=== PATIENT | female | born 1990 ===

== ENCOUNTER 2019-12-25 05:36 | Inpatient (IN) ==
--- NOTE | 2019-12-22 11:48 | History & Physical Report ---
Date of Service December 22, 2019 Assessment & Plan (1) Previous delivery affecting , antepartum: Repeat section. The patient was counseled to the nature of the procedure including alternatives such as labor. Risks were discussed including bleeding infection injury to bowel bladder ureter vessels and even baby. The risks of internal organ injury were discussed as being higher with prior sections. Deep Vein Thrombosis, pulmonary embolus and breakdown of the incision discussed. Deep vein thrombosis pulmonary embolus hernia and failure of the incision to heal were discussed Patient verbalized understanding of this and was given ample time to ask que hilary History of Present Illness Primary Care Provider: NO PCP 2 prior C/S and scheduled for repeat. Declines tubal Allergies Allergy/AdvReac Type Severity Reaction Status Date / Time No Known Allergies Allergy Verified 12/22/19 11:02 Home Medications Home Medications Medication Instructions Recorded Confirmed Type 1 dose PO DAILY 12/22/19 12/22/19 History Patient History Social History (Updated 06/21/19 @ 14:56 by Cortney Prakash) Preferred Language: Occitan Communication Ability: Effective Inventory Associate Required: No Beliefs That Will Affect Care: None Current Living Situation: Spouse Feels Safe at Home: Yes Smoking Status: Former smoker Second Hand Exposure: Yes (as a child) ; Hx Alcohol Use: Yes Hx Substance Use: No Physical Exam Constitutional: WD/WN, vitals as above well developed and well nourished Respiratory: normal respiratory effort, lungs clear to auscultation normal respiratory effort Cardiovascular: RRR, no murmur, no edema Chest (Breasts): normal inspection/palpation of breasts Breast: normal inspection of breasts, normal inspection of axillae, normal palpation of breasts and normal palpation of axillae Gastrointestinal (Abdomen): normal bowel sounds, soft, nontender, no hepatosplenomegaly Genitourinary: no vaginal lesions, no adnexal mass normal external appearance Coding Level of Care Code None Diagnoses Previous delivery affecting , antepartum O34.219
[2019-12-25] MEDS ORDERED: CITRIC ACID/SODIUM CITRATE 15 ML UDC PO SCH (06:00)
[2019-12-25] MEDS ORDERED: CEFAZOLIN 2,000 MG in SYRINGE 0 ML IV SCH (06:00)
[2019-12-25] MEDS ORDERED: LACTATED RINGER'S 1,000 ML IV SCH ×2 (06:00→10:58)
[2019-12-25 06:08] LABS: Basophils # (auto) 0.02 K/uL (0-0.2); Basophils % (auto) 0.1 %; Eosinophils # (auto) 0.05 K/uL (0-0.5); Eosinophils % (auto) 0.3 %; Hematocrit (blood only) 35.7 % (37-47); Hemoglobin 11.6 g/dL (12.0-16.0); Immature Granulocytes # (auto) 0.14 K/uL (0.00-0.02); Immature Granulocytes % (auto) 0.8 %; Lymphocytes # (auto) 2.76 K/uL (1.2-3.4); Mean Corpuscular Hemoglobin 27.6 pg (25-34); Mean Corpuscular Volume 84.8 fL (80-100); Mean Platelet Volume 10.6 fL (7.4-10.4); Monocytes # (auto) 1.52 K/uL (0.11-0.59); Monocytes % (auto) 8.8 %; Neutrophils # (auto) 12.73 K/uL (1.4-6.5); Platelet Count 213 K/uL (130-400); RDW Coefficient of Variation 13.5 % (11.5-14.5); RDW Standard Deviation 41.1 fL (36.4-46.3); Red Blood Count 4.21 M/uL (4.2-5.4); White Blood Count 17.22 K/uL (4.8-10.8)
[2019-12-25 06:13] LABS: Mean Corpuscular Hgb Conc 32.5 g/dL (32-36)
--- NOTE | 2019-12-25 07:31 | Anesthesiology Consultation ---
Date of Service December 25, 2019 @ 39wk 2x Previous C Section Smoker Assessment & Plan (1) Encounter for pre-operative examination: Chart Review Chart Review: Acceptable Risk for Surgery and Patient NOT seen in Pre Admission Testing Consults Requested none ASA ASA2 Proposed Anesthesia Anesthesia Type: Spinal Risk / Benefits Reviewed With: PT / POA / Parent / Guardian, Accepts Plan and Informed Consent Obtained History Surgery Operation Date: 12/25/19 07:30 Proposed Procedures p Section - Ginny Wheeler MD, FACOG Height/Weight Height: 5 ft 3 in Weight: 76.204 kg Allergies Allergy/AdvReac Type Severity Reaction Status Date / Time No Known Allergies Allergy Verified 12/22/19 11:02 Medications Home Medications Medication Instructions Recorded Confirmed Last Taken 1 dose PO DAILY 12/22/19 12/25/19 12/22/19 21:00 NPO Date Last Intake of Fluids: 12/24/19 Time Last Intake of Fluids: 23:45 Date Last Intake of Solids: 12/24/19 Time Last Intake of Solids: 23:45 Past Medical History Medical History No known health problems Exercise / Class Metabolic Activity II 4-5 Yardwork/Stairs/Walk up hill Past Family History Family History Mother Premature labor Hypertension Other No family history of adverse response to anesthesia Past Surgical History Surgical History History of delivery (Inactive) x 2 Past Anesthesia History No Hx of Anesthesia Complications and No Family Hx of Anesthesia Complications History of PONV No Hx of PONV and No Hx of Motion Sickness Social History Smoking Status: Current every day smoker tobacco type: cigarettes Do You Dip or Chew Tobacco: No Smoking End Date: 9 months ago Hx Alcohol Use: Yes alcohol intake frequency: holidays/special occasions only Hx Substance Use: No substance use type: does not use Physical Exam Vital Signs Last Vital Signs Temp 36.4 C L 12/25/19 05:57 Pulse 88 12/25/19 05:57 Resp 20 12/25/19 05:57 BP 142/92 H 12/25/19 05:57 ENMT Mouth: no dentition abnormality Thyromental Distance: > or= 3.5 Finger Breadths Mallampati Class: II Neck normal visual inspection Respiratory normal respiratory effort Auscultation: lungs clear to auscultation bilaterally Cardiovascular Rate/Rhythm: regular rate and regular rhythm Psychiatric Orientation: alert Testing Laboratory Results 12/25/19 05:56
[2019-12-25] MEDS ORDERED: MoRPHine SULFATE PF 1 MG/ML 10 ML AMP/VIAL ONE (07:33)
[2019-12-25] MEDS ORDERED: fentaNYL citrate 100 MCG/2 ML VIAL ONE (07:33)
--- NOTE | 2019-12-25 07:33 | History & Physical Bridge Note ---
Date of Service December 25, 2019 History & Physical Bridge Note I have examined the patient, reviewed the History & Physical and in the interval since the performance of the History & Physical I have noted the following changes of clinical significance: no changes noted
[2019-12-25] MEDS ORDERED: OXYTOCIN 10 UNITS/ML VIAL ONE (07:59)
[2019-12-25] MEDS ORDERED: ONDANSETRON INJ 2 MG/ML 2 ML VIAL ONE (07:59)
[2019-12-25 08:26] LABS: Base Excess Cord Arterial Bld 0.4 mEq/L (-9-1.8); CO2 Cord Arterial Blood 62 mmHg (39.1-73.5); HCO3 Cord Arterial Blood 29 mmol/L (19.7-28.5); PO2 Cord Arterial Blood 17 mmHg (4.1-31.7)
[2019-12-25 08:31] LABS: Oxygen Sat Cord Arterial Blood < 60.0 % (<60)
[2019-12-25 08:32] LABS: pH Cord Arterial Blood 7.29 (7.1-7.38)
[2019-12-25 08:33] LABS: Base Excess Cord Venous Blood 0.3 mEq/L (-7.7-1.9); Cord Venous Blood HCO3 27 mmol/L (18.4-26.8); Cord Venous Blood PCO2 48 mmHg (30.4-57.2); Cord Venous Blood PO2 27 mmHg (14.1-43.3); Cord Venous Blood pH 7.36 (7.20-7.44)
--- NOTE | 2019-12-25 08:51 | Operative Report ---
PG Post Operative Report Pre & Post Diagnosis Operation Date: 12/25/19 07:30 Pre-Op Diagnosis: History of 2 Prior Section; desire for repeat section Post-Op Diagnosis: History of Section; desire for repeat section; low transverse section; delivery of live female child at 0805 I identified the patient and participated in the time-out.: Yes Procedure Operation Date: 12/25/19 07:30 Actual Procedures p Section(Bilateral) - Ginny Wheeler MD, FACOG Surgeon Ginny Wheeler MD, FACOG Fire Equipment Operator Dr. Gutierrez Estimated Blood Loss 500 Findings Consistent with Post-Op Diagnosis Specimens cord gases, blood Description of Procedure Regional anesthetic was given by anesthesia patient had a Rodriguez catheter inserted by nursing patient was prepped and draped in supine position with a leftward tilt preoperative antibiotics were given timeout performed Pickups with teeth were used to test the skin site and it was found adequate for incision scalpel used to make a Pfannenstiel incision cutting down through subcutaneous fat through the fascia fascia was then dissected laterally with the curved Peterson's fascia was released superiorly and inferiorly from the rectus muscles with the curved Peterson scissors, rectus muscle split peritoneal cavity entered in a superior location. There was significant scar tissue we carefully dissected away the bladder flap sharply with Metzenbaums and adherent tissue laterally on the uterus. Opening enlarged to allow exposure bladder retractor placed Metzenbaums used to dissect away the bladder flap low segment transverse incision made on the uterus with scalpel entry was done bluntly with the steam oven operator's finger hysterotomy incision extended with the steam oven operator's finger in the usual fashion baby was delivered then by flexion of the head and pressure from the surgical services assistant on the abdomen mouth and then nares were suctioned baby was then delivered fully without difficulty without excessive force live vigorous infant cord clamped and cut cord gases obtained cord blood obtained placenta removed manually within ensured all placenta removed with a moist lap sponge uterus exteriorized IV Pitocin had been started by anesthesia and uterine tone improved. The uterus was closed in 2 layers first layer and 0 Monocryl running locked second layer 0 Monocryl nonlocked after generous irrigation and suction of the cul-de-sac and bladder flap regions hemostasis was excellent uterus was placed back in the peritoneal cavity and hemostasis was excellent rectus muscles were inspected and found to be dry fascia closed with 0 Vicryl subcutaneous fat closed with 3-0 Vicryl prior to this subcutaneous fat was irrigated skin closed with 4-0 subcuticular Monocryl incision Steri-Stripped urine was clear at the end of the procedure I attest to the content of the Intraoperative Record and any orders documented therein. Any exceptions are noted below.
[2019-12-25] MEDS ORDERED: NALOXONE HCL 0.08 MG in SYRINGE 1.8 ML IV PRN (09:02)
[2019-12-25] MEDS ORDERED: DiphenhydrAMINE HCL 50 MG/ML VIAL IV PRN (09:02)
[2019-12-25] MEDS ORDERED: MoRPHine SULFATE PF 1 MG/ML 10 ML AMP/VIAL INT SPINAL ONE (09:02)
[2019-12-25] MEDS ORDERED: MoRPHine SULFATE 2 MG/ML CARP IV PRN (09:02)
[2019-12-25] MEDS ORDERED: NALOXONE HCL 1 MG in SODIUM CHLORIDE 0.9% 1000ML 1,000 ML IV PRN (09:02)
[2019-12-25] MEDS ORDERED: LACTATED RINGER'S 500 ML IV PRN (09:02)
[2019-12-25] MEDS ORDERED: ONDANSETRON INJ 2 MG/ML 2 ML VIAL IV PRN (09:02)
[2019-12-25] MEDS ORDERED: PROMETHAZINE HCL 6.25 MG in SODIUM CHLORIDE 0.9% 50 ML IV PRN (09:02)
[2019-12-25] MEDS ORDERED: ePHEDrine sulfate 50 MG/ML AMP IV PRN (09:02)
[2019-12-25] MEDS ORDERED: NALBUPHINE HCL INJ 10 MG/ML AMP IV PRN (09:02)
[2019-12-25] MEDS ORDERED: NALOXONE HCL 0.4 MG/1 ML VIAL/CARP IV PRN (09:02)
[2019-12-25] MEDS ORDERED: DC INTRASPINAL MORPHINE SCH (09:15)
[2019-12-25] MEDS ORDERED: NO NARCOTICS OR SEDATIVES SCH (09:15)
[2019-12-25] MEDS ORDERED: SODIUM CHLORIDE 0.9% 1000ML 1,000 ML IV SCH (09:15)
[2019-12-25] MEDS ORDERED: BENZOCAINE 20% AER SPR 82.5 GM CAN EXT PRN (10:58)
[2019-12-25] MEDS ORDERED: DIPHTHERIA/TETANUS/PERTUSSIS 0.5 ML SYR/VIAL IM ONE (10:58)
[2019-12-25] MEDS ORDERED: HYDROCORTISONE ACETATE 25 MG SUPP PR PRN (10:58)
[2019-12-25] MEDS ORDERED: SENNA 8.6 MG TAB PO PRN (10:58)
[2019-12-25] MEDS ORDERED: SUPERCREAM 0.870% 15 GM JAR EXT PRN (10:58)
[2019-12-25] MEDS ORDERED: PRENATAL PO SCH (10:58)
[2019-12-25] MEDS ORDERED: MAGNESIUM HYDROXIDE SUSP 30 ML UDC PO PRN (10:58)
--- NOTE | 2019-12-25 11:32 | Anesthesiology Progress Note ---
Date of Service December 25, 2019 Anesthesia Post Procedure Vital Signs Vital Signs: Temp Pulse Resp BP Pulse Ox 12/25/19 10:52 97 H 20 94 12/25/19 10:47 97 H 94 12/25/19 10:46 96 H 95 12/25/19 10:45 92 H 146/96 H 12/25/19 10:41 98 H 151/92 H 97 12/25/19 10:39 92 H 93 12/25/19 10:36 97 H 97 12/25/19 10:31 103 H 145/98 H 95 12/25/19 10:26 96 H 96 12/25/19 10:22 96 H 20 140/79 96 12/25/19 10:21 95 H 96 12/25/19 10:16 99 H 96 12/25/19 10:11 98 H 94 12/25/19 10:10 100 H 94 12/25/19 10:06 94 H 95 12/25/19 10:05 94 H 94 12/25/19 10:01 97 H 142/73 H 96 12/25/19 09:59 103 H 93 12/25/19 09:56 100 H 97 12/25/19 09:53 110 H 92 12/25/19 09:52 36.4 C L 98 H 21 142/89 H 94 12/25/19 09:51 102 H 95 12/25/19 09:48 94 H 94 12/25/19 09:46 92 H 97 12/25/19 09:42 88 24 93 12/25/19 09:41 92 H 138/75 96 12/25/19 09:36 89 95 12/25/19 09:32 87 150/86 H 94 12/25/19 09:31 87 150/86 H 94 12/25/19 09:30 99 H 95 12/25/19 09:25 88 97 12/25/19 09:23 85 133/77 94 12/25/19 09:22 87 150/86 H 94 12/25/19 09:20 92 H 95 12/25/19 09:18 95 H 93 12/25/19 09:15 89 96 12/25/19 09:12 88 20 126/68 97 12/25/19 09:10 96 H 95 12/25/19 09:05 93 H 97 12/25/19 09:03 100 H 94 12/25/19 09:02 88 17 97 12/25/19 09:00 96 H 97 12/25/19 08:55 97 H 98 12/25/19 08:52 36.4 C L 101 H 20 134/71 12/25/19 08:50 96 H 98 12/25/19 05:57 36.4 C L 88 20 142/92 H 12/25/19 05:51 88 142/92 H 12/25/19 05:49 36.4 C L 20 Transfer of Care Handoff Completed per policy Notes Mental Status: alert / awake / arousable Nausea / Vomiting: adequately controlled Pain: adequately controlled Airway Patency, RR, SpO2: stable & adequate BP & HR: stable & adequate Hydration State: stable & adequate Neuraxial Anesthesia: was administered and sensory block is resolving Anesthetic Complications: no major complications apparent
[2019-12-25] MEDS: OXYTOCIN 20 UNITS in LACTATED RINGER'S 1,000 ML IV SCH ×2 (11:45→20:54)
[2019-12-25] MEDS: SIMETHICONE 80 MG CHEW PO SCH ×3 (14:14→20:56)
[2019-12-25] MEDS: KETOROLAC 30 MG/ML VIAL IV PRN (17:41)
[2019-12-26] MEDS: KETOROLAC 30 MG/ML VIAL IV PRN (02:15)
[2019-12-26] MEDS ORDERED: DiphenhydrAMINE HCL 50 MG/ML VIAL IV PRN (03:03)
[2019-12-26] MEDS ORDERED: MEPERIDINE HCL 50 MG/ML CARP IV PRN (03:03)
[2019-12-26] MEDS ORDERED: PROMETHAZINE HCL 25 MG in SODIUM CHLORIDE 0.9% 50 ML IV PRN (03:03)
[2019-12-26] MEDS ORDERED: KETOROLAC 30 MG/ML VIAL IV PRN (03:03)
[2019-12-26] MEDS ORDERED: ZOLPIDEM TARTRATE 5 MG TAB PO PRN (03:03)
[2019-12-26] MEDS ORDERED: ONDANSETRON INJ 2 MG/ML 2 ML VIAL IV PRN (03:03)
--- NOTE | 2019-12-26 06:25 | Obstetrical Progress Note ---
Date of Service December 26, 2019 Assessment & Plan (1) Status post : Anusha is a 29 yo on POD 1 after repeat, elective CS - GBS -, Blood Type AB-, Rubella immune - Baby's blood type A+; will order Rhogam - Vitals reviewed and WNL - patient is doing clinically well continue routine post care - After discharge will have [address] Wheeler. Supervising Physician Co-Signing Physician Notes Resident Physician Supervision Note: I was present with Dr. alcaraz during the history and exam. I discussed the case with the resident and agree with the findings and plan as documented in the note. Any exceptions or clarifications are listed here: [None] Documented By: Ginny Wheeler MD, FACOG Subjective Ambulation: ambulating normally Voiding: no voiding problems Passing Gas:: Yes Diet Tolerance:: regular diet Lochia:: Small Feeding Type:: breast feeding Review of Systems Constitutional: no fever, no chills and no sweats Respiratory: no cough and no dyspnea Cardiovascular: no chest pain and no palpitations Gastrointestinal: no nausea and no vomiting Genitourinary: no dysuria and no urinary frequency Neurologic: no headache(s) Physical Exam Constitutional: WD/WN, vitals as above no acute distress Respiratory: normal respiratory effort, lungs clear to auscultation does not use accessory muscles Auscultation: no crackles, no rhonchi, no wheezes and no pleural rub Cardiovascular: Rate/Rhythm: regular rate and regular rhythm Heart Sounds: normal S1 and normal S2; no gallop, no murmur and no cardiac rub Extremities: no calf tenderness and no pedal edema Gastrointestinal (Abdomen): Inspection/Auscultation: normal bowel sounds; abdomen not distended Percussion/Palpation: abdomen soft surgical incision: steri strips in place; minimal dried blood visible; no warmth; appropriate post-op tenderness Genitourinary: Uterus: fundus firm, palpable 1 cm below the umbilicus Results & Data Vital Signs (Past 12 Hours) Vital Signs Temp Pulse Resp BP Pulse Ox 12/26/19 04:50 37 C 77 16 113/75 12/26/19 03:00 16 96 12/26/19 02:10 16 95 12/26/19 01:10 18 95 02/04/20 00:10 36.6 C 86 18 124/74 96 12/25/19 23:15 18 93 12/25/19 22:45 18 96 12/25/19 21:45 18 95 12/25/19 20:45 18 95 12/25/19 19:45 18 94 12/25/19 19:40 36.7 C 90 18 122/80 95 12/25/19 18:45 18 96 Resident Activity Tracking Resident Involvement: Resident Care Provided Care Provided: OB Delivery
[2019-12-26 06:29] LABS: Basophils # (auto) 0.01 K/uL (0-0.2); Basophils % (auto) 0.1 %; Eosinophils # (auto) 0.05 K/uL (0-0.5); Eosinophils % (auto) 0.3 %; Hematocrit (blood only) 32.4 % (37-47); Hemoglobin 10.4 g/dL (12.0-16.0); Immature Granulocytes # (auto) 0.07 K/uL (0.00-0.02); Immature Granulocytes % (auto) 0.5 %; Lymphocytes # (auto) 2.02 K/uL (1.2-3.4); Lymphocytes % (auto) 13.4 %; Mean Corpuscular Hemoglobin 27.2 pg (25-34); Mean Corpuscular Hgb Conc 32.1 g/dL (32-36); Mean Corpuscular Volume 84.8 fL (80-100); Mean Platelet Volume 10.6 fL (7.4-10.4); Monocytes # (auto) 0.93 K/uL (0.11-0.59); Monocytes % (auto) 6.2 %; Neutrophils # (auto) 11.94 K/uL (1.4-6.5); Neutrophils % (auto) 79.5 %; Platelet Count 200 K/uL (130-400); RDW Coefficient of Variation 13.6 % (11.5-14.5); RDW Standard Deviation 41.5 fL (36.4-46.3); Red Blood Count 3.82 M/uL (4.2-5.4); White Blood Count 15.02 K/uL (4.8-10.8)
[2019-12-26] MEDS: DOCUSATE SODIUM 100 MG CAP PO SCH ×2 (07:40→19:52)
[2019-12-26] MEDS: FERROUS SULFATE 325 MG TAB PO SCH (07:41)
[2019-12-26] MEDS: SIMETHICONE 80 MG CHEW PO SCH ×4 (07:41→19:52)
[2019-12-26] MEDS: PRENATAL VITAMIN 1 TAB PO SCH (07:41)
--- NOTE | 2019-12-26 08:22 | Anesthesiology Progress Note ---
Date of Service December 26, 2019 Anesthesia Post Procedure Vital Signs Vital Signs: Temp Pulse Pulse Resp BP BP Pulse Ox 12/26/19 07:25 36.6 C 83 16 137/90 98 12/26/19 04:50 37 C 77 16 113/75 12/26/19 03:00 16 96 12/26/19 02:10 16 95 12/26/19 01:10 18 95 12/26/19 00:10 36.6 C 86 18 124/74 96 12/25/19 23:15 18 93 12/25/19 22:45 18 96 12/25/19 21:45 18 95 12/25/19 20:45 18 95 12/25/19 19:45 18 94 12/25/19 19:40 36.7 C 90 18 122/80 95 12/25/19 18:45 18 96 12/25/19 17:45 18 95 12/25/19 16:45 18 96 12/25/19 16:25 36.9 C 92 H 18 123/69 93 12/25/19 15:45 18 95 12/25/19 14:45 20 94 12/25/19 13:45 16 93 12/25/19 12:45 20 94 12/25/19 11:45 36.7 C 99 H 20 140/85 94 12/25/19 10:52 97 H 20 94 12/25/19 10:48 36.7 C 87 20 144/88 H 95 12/25/19 10:47 97 H 94 12/25/19 10:46 96 H 95 12/25/19 10:45 92 H 146/96 H 12/25/19 10:41 98 H 151/92 H 97 12/25/19 10:39 92 H 93 12/25/19 10:36 97 H 97 12/25/19 10:31 103 H 145/98 H 95 12/25/19 10:26 96 H 96 12/25/19 10:22 96 H 20 140/79 96 12/25/19 10:21 95 H 96 12/25/19 10:16 99 H 96 12/25/19 10:11 98 H 94 12/25/19 10:10 100 H 94 12/25/19 10:06 94 H 95 12/25/19 10:05 94 H 94 12/25/19 10:01 97 H 142/73 H 96 12/25/19 09:59 103 H 93 12/25/19 09:56 100 H 97 12/25/19 09:53 110 H 92 12/25/19 09:52 36.4 C L 98 H 21 142/89 H 94 12/25/19 09:51 102 H 95 12/25/19 09:48 94 H 94 12/25/19 09:46 92 H 97 12/25/19 09:42 88 24 93 12/25/19 09:41 92 H 138/75 96 12/25/19 09:36 89 95 12/25/19 09:32 87 150/86 H 94 12/25/19 09:31 87 150/86 H 94 12/25/19 09:30 99 H 95 12/25/19 09:25 88 97 12/25/19 09:23 85 133/77 94 12/25/19 09:22 87 150/86 H 94 12/25/19 09:20 92 H 95 12/25/19 09:18 95 H 93 12/25/19 09:15 89 96 12/25/19 09:12 88 20 126/68 97 12/25/19 09:10 96 H 95 12/25/19 09:05 93 H 97 12/25/19 09:03 100 H 94 12/25/19 09:02 88 17 97 12/25/19 09:00 96 H 97 12/25/19 08:55 97 H 98 12/25/19 08:52 36.4 C L 101 H 20 134/71 12/25/19 08:50 96 H 98 Pain Intensity Abdomen: Pain Intensity: 2 Notes Mental Status: alert / awake / arousable and participated in evaluation Patient Amnestic to Procedure: Yes Nausea / Vomiting: adequately controlled Pain: adequately controlled Airway Patency, RR, SpO2: stable & adequate Hydration State: stable & adequate Neuraxial Anesthesia: was administered and sensory block is resolving Anesthetic Complications: no major complications apparent and Pt Satisfied with anesthetic care
--- NOTE | 2019-12-26 08:51 | Communication Note ---
Date of Service: December 26, 2019 Pt. is s/p c sec x 1 day. Pt had an epidural as the anesthetic. Pt has no c/o of H/A, nor any other neurologic complaints.Pt has been up and ambulating.
[2019-12-26] MEDS: OXYCODONE/ACETAMINOPHEN 5mg/325mg TAB PO PRN ×3 (11:18→19:54)
[2019-12-26] MEDS: IBUPROFEN 600 MG TAB PO PRN ×3 (11:18→19:55)
[2019-12-26] MEDS ORDERED: bisacodyL 5 MG TABEC PO SCH (20:00)
[2019-12-27] MEDS: IBUPROFEN 600 MG TAB PO PRN ×3 (00:03→13:56)
[2019-12-27 05:54] LABS: Hematocrit (blood only) 30.9 % (37-47); Hemoglobin 9.8 g/dL (12.0-16.0)
--- NOTE | 2019-12-27 06:18 | Obstetrical Progress Note ---
Date of Service December 27, 2019 Assessment & Plan (1) Status post : Anusha is a 29 yo on POD 2 after repeat, elective CS - GBS -, Blood Type AB-, Rubella immune - Baby's blood type A+; rhogam given 2/4 - Vitals reviewed and WNL - patient is doing clinically well discharge instructions reviewed - After discharge will have [address] Wheeler. Supervising Physician Co-Signing Physician Notes Resident Physician Supervision Note: I was present with during the history and exam. I discussed the case with the resident and agree with the findings and plan as documented in the note. Any exceptions or clarifications are listed here: Patient desires d/c. Instructions/Rx given, questions answered. Documented By: Tay Parada Jr, MD, FACOG Subjective Ambulation: ambulating normally Voiding: no voiding problems Passing Gas:: Yes Diet Tolerance:: regular diet Lochia:: Small Feeding Type:: breast feeding Review of Systems Constitutional: no fever, no chills and no sweats Respiratory: no cough and no dyspnea Cardiovascular: no chest pain and no palpitations Gastrointestinal: no nausea and no vomiting Genitourinary: no dysuria and no urinary frequency Neurologic: no headache(s) Physical Exam Constitutional: WD/WN, vitals as above no acute distress Respiratory: normal respiratory effort, lungs clear to auscultation does not use accessory muscles Auscultation: no crackles, no rhonchi, no wheezes and no pleural rub Cardiovascular: Rate/Rhythm: regular rate and regular rhythm Heart Sounds: normal S1 and normal S2; no gallop, no murmur and no cardiac rub Extremities: no calf tenderness and no pedal edema Gastrointestinal (Abdomen): Inspection/Auscultation: normal bowel sounds; abdomen not distended Percussion/Palpation: abdomen soft surgical incision: steri strips in place; minimal dried blood visible; no warmth; appropriate post-op tenderness Genitourinary: Uterus: fundus firm, palpable 2 cm below the umbilicus Results & Data Vital Signs (Past 12 Hours) Vital Signs Temp Pulse Resp BP Pulse Ox 12/26/19 23:55 36.6 C 86 16 128/85 95 12/26/19 19:30 36.4 C L 101 H 16 139/88 96 Resident Activity Tracking Resident Involvement: Resident Care Provided Care Provided: OB Delivery
[2019-12-27] MEDS: FERROUS SULFATE 325 MG TAB PO SCH (07:31)
[2019-12-27] MEDS: SIMETHICONE 80 MG CHEW PO SCH ×2 (07:31→13:56)
[2019-12-27] MEDS: DOCUSATE SODIUM 100 MG CAP PO SCH (07:31)
[2019-12-27] MEDS: PRENATAL VITAMIN 1 TAB PO SCH (07:31)
[2019-12-27] MEDS: OXYCODONE/ACETAMINOPHEN 5mg/325mg TAB PO PRN ×3 (07:32→13:56)
[2019-12-27] MEDS ORDERED: bisacodyL 10 MG SUPP PR PRN (08:47)
--- NOTE | 2019-12-29 07:59 | Discharge Summary ---
Date of Service December 29, 2019 Admission HPI Per Admitting Provider 2 prior C/S and scheduled for repeat. Declines tubal Admission Exam (Per Admitting) Constitutional WD/WN, vitals as above well developed and well nourished Respiratory normal respiratory effort, lungs clear to auscultation normal respiratory effort Cardiovascular RRR, no murmur, no edema Gastrointestinal (Abdomen) normal bowel sounds, soft, nontender, no hepatosplenomegaly Discharge Data Consultations 12/25/19 05:46 Consult Anesthesiology Stat Procedures Performed Operation Date: 12/25/19 07:30 Actual Procedures p Section(Bilateral) - Ginny Wheeler MD, FACOG Hospital Course (1) Status post : Postoperative from section patient meets discharge criteria as she is ambulating well tolerating an oral diet has minimal bleeding and no extremity pain. Discharge instructions were reviewed and prescriptions were sent to her pharmacy of choice patient advised to call with any concerns and follow-up in the office discussed Coding Level of Care Code None Diagnoses Status post Z98.891
== END 2019-12-27 17:00 | disposition home or self-care (01) | DRG 787 ==
LOC: 4S1 05:36 → EDSTATUS 07:30 → 4S2 11:03
DX: Z87.891 Personal history of nicotine dependence; Z37.0 Single live birth; O36.0930 Maternal care for other rhesus isoimmunization, third trimester, not applicable or unspecified; O34.211 Maternal care for low transverse scar from previous cesarean delivery; Z77.22 Contact with and (suspected) exposure to environmental tobacco smoke (acute) (chronic); Z3A.39 39 weeks gestation of pregnancy

== ENCOUNTER 2021-08-15 02:37 | Inpatient (IN) ==
--- NOTE | 2021-08-08 08:34 | Anesthesiology Consultation ---
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 Pt did visit her mother in [place] in June 2021- mother was unknowingly Covid postive- patient tested Covid positive 07/31/21 (had Covid test at [place] [facility] on 07/31/21 that resulted positive on 08/03/21) (Results scanned into system- did review with Infection Control and will accept results as noted). Pt had mild diarrhea, head cold symptoms, and loss of taste/smell when dx'ed with Covid- still has residual loss of taste and smell but otherwise feels better. also tested Covid positive. Pt is not vaccinated for Covid. Pt has been Covid positive within 90 days prior to date- per protocol- does not need retested for Covid and can proceed with without Covid precautions since it will be >11 days since Covid positive test. History Surgery Operation Date: 08/15/21 07:30 Proposed Procedures p Section Delivery of Baby through Abdominal Incision - Radha Doan MD, FACOG s Bilateral Tubal Ligation - Radha Doan MD, FACOG Height/Weight Height: 5 ft 3.5 in Weight: 74.389 kg Allergies Allergy/AdvReac Type Severity Reaction Status Date / Time No Known Allergies Allergy Verified 08/07/21 09:40 Medications Home Medications Medication Instructions Recorded Confirmed Last Taken 1 dose PO DAILY 12/22/19 08/07/21 12/22/19 21:00 Past Medical History Medical History History of COVID-19 07/21/2021 started with head cold symptoms-diarrhea, loss taste and smell. 07/31 test Covid test was positive at [facility] [facility] in [place]. tested Covid positive as well. No known health problems Past Family History Family History Mother Premature labor Hypertension Other No family history of adverse response to anesthesia Denies family history of Ovarian cancer Breast cancer Colorectal cancer Past Surgical History Surgical History History of delivery x 3 Social History Smoking Status: Never smoker tobacco type: cigarettes Do You Dip or Chew Tobacco: No Hx Alcohol Use: No alcohol intake frequency: holidays/special occasions only Hx Substance Use: No substance use type: does not use
--- NOTE | 2021-08-14 17:03 | History & Physical Report ---
Date of Service August 14, 2021 Assessment & Plan (1) Previous delivery affecting , antepartum: Plan: IUP at 39 weeks with history of COVID (+) 07/31/21 and now asymptomatic. scheduled for repeat LTCS + tubal ligation. the procedures & risks were reviewed with the patient and all questions were answered to her satisfaction. She was offered cervix exam today because of the contractions but she declines. She is to call if contractions become painful , bleeding or SPROM should occur. History of Present Illness Primary Care Provider: NO PCP Patient is a 31 yo white female EDC 08/22/21 who presents for repeat C/S at 39 weeks. FIrst C/S was done for suspected LGA baby. Subsequently she has had repeat C/S with her last 2 pregnancies. has been complicated by (+) COVID on 07/31/21 and now is asymptomatic except for being a little hoarse. GBS (- ) She also requests tubal ligation because of multiparity and unwanted fertility. Today she feels she is having increased ctns which she has not had with her other pregnancies but they are not painful. no bloody show or change in discharge. She also feels the baby is not moving as much as usual. Allergies Allergy/AdvReac Type Severity Reaction Status Date / Time No Known Allergies Allergy Verified 08/14/21 13:32 Home Medications Medication Instructions Recorded Confirmed Type 1 dose PO DAILY 12/22/19 08/14/21 History Patient History Medical History History of COVID-19 07/21/2021 started with head cold symptoms-diarrhea, loss taste and smell. 07/31 test Covid test was positive at [facility] in [place]. tested Covid positive as well. No known health problems Surgical History History of delivery x 3 Family History Mother Premature labor Hypertension Other No family history of adverse response to anesthesia Denies family history of Ovarian cancer Breast cancer Colorectal cancer Social History (Updated 01/08/21 @ 09:04 by Ly Darden) Smoking Status: Never smoker Second Hand Exposure: No; Hx Alcohol Use: No Hx Substance Use: No Preferred Language: Maltese Communication Ability: Effective Marking Devices Assembler Required: No Beliefs That Will Affect Care: None marital status: marital status details: Carl Mariano (40) [phone] Current Living Situation: Spouse Current Living Situation Comment: lives with spouse, 3 children, dog, cats- spouse changing litter current occupational status: unemployed current occupation: homemaker Feels Safe at Home: Yes Assistive Devices: None Review of Systems All systems reviewed & are unremarkable except as noted in HPI & below Physical Exam Constitutional: WD/WN, vitals as above Respiratory: normal respiratory effort, lungs clear to auscultation Cardiovascular: RRR, no murmur, no edema Gastrointestinal (Abdomen): normal bowel sounds, soft, nontender, no hepatosplenomegaly well healed low transverse scar Psychiatric: A+Ox3, euthymic affect Genitourinary: OB Exam Abdomen: + fundal height (37 cm), + vertex and + irregular contractions OB Exam Monitor Tracing: + external FHT monitor used, + external uterine monitor used, + category I and + normal FHT variability Coding Level of Care Code None Diagnoses Previous delivery affecting , antepartum O34.219
[2021-08-15] MEDS ORDERED: LACTATED RINGER'S 1,000 ML IV SCH (03:30)
--- NOTE | 2021-08-15 03:46 | History & Physical Report ---
Date of Service August 15, 2021 Assessment & Plan (1) Previous delivery affecting , antepartum: Plan: Repeat section. The patient was counseled to the nature of the procedure including alternatives such as labor. Risks were discussed including bleeding infection injury to bowel bladder ureter vessels and even baby. The risks of internal organ injury were discussed as being higher with prior sections. Deep Vein Thrombosis, pulmonary embolus and breakdown of the incision discussed. Deep vein thrombosis pulmonary embolus hernia and failure of the incision to heal were discussed Patient verbalized understanding of this and was given ample time to ask questions Patient also wishes bilateral tubal ligation Admission and Anticipated Discharge Date Admission Date: August 15, 2021 History of Present Illness Primary Care Provider: NO PCP Patient was cajoled for section and tubal ligation approximately 4 hours from now however arrived in active labor with rupture of membranes she is 39 weeks and 2 2 days gestational age measures are for she has an anterior placenta but it is high she wishes tubal ligation as well Allergies Allergy/AdvReac Type Severity Reaction Status Date / Time No Known Allergies Allergy Verified 08/14/21 13:32 Home Medications Medication Instructions Recorded Confirmed Type 1 dose PO DAILY 12/22/19 08/14/21 History Patient History Medical History History of COVID-19 07/21/2021 started with head cold symptoms-diarrhea, loss taste and smell. 07/31 test Covid test was positive at [facility] in [place]. tested Covid positive as well. No known health problems Surgical History History of delivery x 3 Family History Mother Premature labor Hypertension Other No family history of adverse response to anesthesia Denies family history of Ovarian cancer Breast cancer Colorectal cancer Social History Smoking Status: Former smoker Second Hand Exposure: Yes; Do You Dip or Chew Tobacco: No; Tobacco Cessation Education Requested by Patient: No Hx Alcohol Use: No Hx Substance Use: No Preferred Language: Somali Communication Ability: Effective Reprographics Associate Required: No Beliefs That Will Affect Care: None marital status: marital status details: Carl Mariano (40) [phone] Current Living Situation: Spouse Current Living Situation Comment: lives with spouse, 3 children, dog, cats- spouse changing litter current occupational status: unemployed current occupation: homemaker Other Information That Helps Us Care for You: No Feels Safe at Home: Yes Safety Concerns: Feels Safe At This Time Assistive Devices: None Review of Systems as per Subjective / HPI Physical Exam 2 Constitutional: WD/WN, vitals as above well developed and well nourished Respiratory: normal respiratory effort, lungs clear to auscultation normal respiratory effort Cardiovascular: RRR, no murmur, no edema Gastrointestinal (Abdomen): normal bowel sounds, soft, nontender, no hepatosplenomegaly Results & Data ([facility]) Vital Signs (Past 12 Hours) Vital Signs Pulse BP 08/15/21 03:04 101 H 148/91 H 08/15/21 02:52 91 H 155/96 H Coding Level of Care Code None Diagnoses Previous delivery affecting , antepartum O34.219
[2021-08-15 03:50] LABS: Eosinophils # (auto) 0.03 K/uL (0-0.5); Eosinophils % (auto) 0.2 %; Hematocrit (blood only) 37.7 % (37-47); Hemoglobin 12.2 g/dL (12.0-16.0); Immature Granulocytes # (auto) 0.06 K/uL (0.00-0.02); Immature Granulocytes % (auto) 0.4 %; Lymphocytes # (auto) 2.02 K/uL (1.2-3.4); Lymphocytes % (auto) 14.7 %; Mean Corpuscular Hemoglobin 29.2 pg (25-34); Mean Corpuscular Volume 90.2 fL (80-100); Mean Platelet Volume 10.4 fL (7.4-10.4); Monocytes % (auto) 8.7 %; Neutrophils # (auto) 10.45 K/uL (1.4-6.5); Platelet Count 258 K/uL (130-400); RDW Coefficient of Variation 14.1 % (11.5-14.5); RDW Standard Deviation 46.1 fL (36.4-46.3); Red Blood Count 4.18 M/uL (4.2-5.4); White Blood Count 13.76 K/uL (4.8-10.8)
[2021-08-15 03:58] LABS: Mean Corpuscular Hgb Conc 32.4 g/dL (32-36)
[2021-08-15] MEDS ORDERED: OXYTOCIN 10 UNITS/ML VIAL ONE (04:01)
[2021-08-15] MEDS ORDERED: MoRPHine SULFATE PF 1 MG/ML 10 ML AMP/VIAL ONE (04:01)
[2021-08-15] MEDS ORDERED: fentaNYL citrate 100 MCG/2 ML VIAL ONE (04:01)
[2021-08-15] MEDS ORDERED: ONDANSETRON INJ 2 MG/ML 2 ML VIAL ONE (04:36)
[2021-08-15] MEDS ORDERED: KETOROLAC 30 MG/ML VIAL IV PRN ×2 (04:41→22:41)
[2021-08-15] MEDS ORDERED: ePHEDrine sulfate 50 MG/ML AMP IV PRN (04:41)
[2021-08-15] MEDS ORDERED: diphenhydrAMINE 50 MG/ML VIAL IV PRN ×2 (04:41→22:41)
[2021-08-15] MEDS ORDERED: LACTATED RINGER'S 500 ML IV PRN (04:41)
[2021-08-15] MEDS ORDERED: NALOXONE HCL 0.4 MG/1 ML VIAL/CARP IV PRN (04:41)
[2021-08-15] MEDS ORDERED: NALOXONE HCL 0.08 MG in SYRINGE 1.8 ML IV PRN (04:41)
[2021-08-15] MEDS ORDERED: MEPERIDINE HCL 25 MG/ML CARP/VIAL IV PRN (04:41)
[2021-08-15] MEDS ORDERED: MoRPHine SULFATE PF 1 MG/ML 10 ML AMP/VIAL INT SPINAL ONE (04:41)
[2021-08-15] MEDS ORDERED: ONDANSETRON INJ 2 MG/ML 2 ML VIAL IV PRN ×2 (04:41→22:41)
[2021-08-15] MEDS ORDERED: NALBUPHINE HCL INJ 10 MG/ML AMP IV PRN (04:41)
[2021-08-15] MEDS ORDERED: NALOXONE HCL 1 MG in SODIUM CHLORIDE 0.9% 1000ML 1,000 ML IV PRN (04:41)
[2021-08-15] MEDS ORDERED: SODIUM CHLORIDE 0.9% 1000ML 1,000 ML IV SCH (04:45)
[2021-08-15] MEDS ORDERED: NO NARCOTICS OR SEDATIVES SCH (04:45)
[2021-08-15] MEDS ORDERED: DC INTRASPINAL MORPHINE SCH (04:45)
[2021-08-15] MEDS ORDERED: PHENYLEPHRINE 100MCG/ML 5ML SYR ONE (04:55)
--- NOTE | 2021-08-15 05:40 | Post Operative Brief Note ---
PG Immediate Post Op with CF Date of Surgery August 15, 2021 Pre & Post Diagnosis Operation Date: 08/15/21 08:50 <No data on this case meets the specified criteria> Pre-op DX: SPROM in labor, prior C/S X3, unwnted fertility and multiparity Pos-op Dx: same + delivery of viable female infant I identified the patient and participated in the time-out.: Yes Procedure Operation Date: 08/15/21 08:50 Actual Procedures p Section in LD(Bilateral) - Radha Doan MD, FACOG Surgeon Radha Doan MD, FACOG Topstitcher Zigzag Warren Wheeler MD Estimated Blood Loss 650 Findings Consistent with Post-Op Diagnosis Specimens Specimen Description: 1. Placenta-Hold 2. Right Fallopian Tube 3. Left Fallopian Tube 4. Cord Blood Drains Rodriguez Catheter Anesthesia Type Spinal Complications none Disposition Accompanied Patient To Recovery: Yes
[2021-08-15] MEDS ORDERED: ceFAZolin 2000MG 2,000 MG/15 ML SYR IV SCH (06:00)
[2021-08-15] MEDS ORDERED: CITRIC ACID/SODIUM CITRATE 15 ML UDC PO SCH (06:00)
--- NOTE | 2021-08-15 06:04 | Anesthesiology Progress Note ---
Date of Service August 15, 2021 Anesthesia Post Procedure Vital Signs Vital Signs: Pulse BP Pulse Ox 08/15/21 05:59 95 H 98 08/15/21 05:54 97 H 98 08/15/21 05:53 96 H 93 08/15/21 05:49 91 H 130/75 96 08/15/21 03:04 101 H 148/91 H 08/15/21 02:52 91 H 155/96 H Transfer of Care Handoff Completed per policy Notes Mental Status: alert / awake / arousable and participated in evaluation Nausea / Vomiting: adequately controlled Pain: adequately controlled Airway Patency, RR, SpO2: stable & adequate BP & HR: stable & adequate Hydration State: stable & adequate Neuraxial Anesthesia: was administered and sensory block is resolving Anesthetic Complications: no major complications apparent and Pt Satisfied with anesthetic care
[2021-08-15] MEDS ORDERED: BENZOCAINE 20% AER SPR 82.5 GM CAN EXT PRN (06:07)
[2021-08-15] MEDS ORDERED: HYDROCORTISONE ACETATE 25 MG SUPP PR PRN (06:07)
[2021-08-15] MEDS ORDERED: DIPHTHERIA/TETANUS/PERTUSSIS 0.5 ML SYR/VIAL IM ONE (06:07)
[2021-08-15] MEDS ORDERED: MAGNESIUM HYDROXIDE SUSP 30 ML UDC PO PRN (06:07)
[2021-08-15] MEDS ORDERED: SENNA 8.6 MG TAB PO PRN (06:07)
[2021-08-15] MEDS ORDERED: SUPERCREAM 0.870% 15 GM JAR EXT PRN (06:07)
--- NOTE | 2021-08-15 07:17 | Operative Report (OR) ---
DATE OF PROCEDURE: 08/15/2021. SURGEON: Radha Alfredo MD MEDICAL TRANSCRIPTIONIST: Patrick Wheeler MD PREOPERATIVE DIAGNOSES: 1. Intrauterine at 39 weeks, spontaneous rupture of membranes, in active labor. 2. Prior section x3, unwanted fertility, and multiparity. 3. Positive COVID as of 07/31/2021, but now asymptomatic. POSTOPERATIVE DIAGNOSES: 1. Intrauterine at 39 weeks, spontaneous rupture of membranes, in active labor. 2. Prior section x3, unwanted fertility, and multiparity. 3. Positive COVID as of 07/31/2021, but now asymptomatic. 4. Delivery of a viable female , 7 pounds 0 ounces. PROCEDURE: A repeat low transverse section and bilateral tubal ligation. ANESTHESIA: Subarachnoid block. BLOOD LOSS: 650 mL. HISTORY: The patient is a 31-year-old white female, G4, P3-0-0-3, EDC of 08/22/2021, who presented w ith ruptured membranes in labor prior to her scheduled section. She had been hunter prior to ru pture of membranes. She noted leaking fluid and then a gush of clear fluid at approximately 0200 [address] rs. She presented to labor and delivery and was confirmed to be ruptured. We are now proceeding wit h the repeat section as planned. She is also requesting bilateral tubal ligation because of unwanted fertility and multiparity. She understands the risks of the procedure and is willing to pr oceed. GROSS FINDINGS: Uterus is gravid and consistent with a term in size. Bilateral ovaries an d fallopian tubes were grossly normal. There was a dense adhesion of the anterior uterine wall to th e abdominal wall. DESCRIPTION OF PROCEDURE: After the patient received adequate subarachnoid block, she was prepped an d draped in the usual sterile fashion. A low transverse skin incision was made through her prior sca r and carried to the fascia with the same scalpel. The fascial incision was then extended with Peterson scissors and the underlying rectus muscles bluntly and sharply dissected off of the overlying fascia. The membranes were entered bluntly and because of the dense abdominal wall adhesion to the uterine fundus, the bladder was dissected down higher on the uterus than usual. After the bladder was taken down off the anterior surface of the uterus, the uterus was entered with a scalpel. The incision was then extended transversely and bluntly. Membranes were ruptured for clear fluid. The infant was de livered from the occiput posterior presentation with moderate fundal pressure. The rest of the infan t delivered easily. There was a cord wrapped around the thigh and a true knot noted upon delivery. Placenta was manually removed after the cord was clamped and cut and the handed off to Dr. Kerwin samayoa who was in attendance as welder shielded metal arc. After removing some retained membranes, the abdominal wall adhesion was taken down with the Bovie. At this point, the uterus could be exteriorized and was cov ered with a clean lap sponge. The uterine incision was then closed in 2 layers in a running locking imbricating fashion with 0 Monocryl. Bleeding along the incision site was controlled with the Bovie. At this point, the right fallopian tube was identified, followed to its fimbriated end. It was gra sped in the midportion with a Calypso clamp and a knuckle of tube was developed with a tie of 3-0 harsh in catgut. A second suture ligature of the same was placed to reinforce the first. The knuckle of t ube was removed and the remaining ends of the tubes were cauterized. The left fallopian tube was the n identified, followed to its fimbriated end. It too was grasped on the midpoint with a Aminta clam p. A suture was placed through the mesosalpinx and the knuckle of tube was developed. A second sutu re ligature of the same was used to reinforce the first. The knuckle of tube was then removed and th e remaining ends of the tube were cauterized. Hemostasis was noted to be excellent on both of the tu bes. Some continued oozing from the takedown of the adhesion was controlled with the Bovie. The natan smooth was then placed back gently into the abdominal cavity. The incision was examined once more, cont inued to have some mild oozing present. FloSeal was used to secure hemostasis. The tubal sites were then examined once more and continued to have excellent hemostasis. The fascia was then closed in a running fashion with 0 Vicryl. After irrigating the adipose layer, the skin edges were reapproximate d using a subcuticular stitch of 4-0 Vicryl. Urine was clear at the end of the case. Mother and inf ant were doing well after delivery. Job ID: [id number]
[2021-08-15] MEDS: OXYTOCIN 20 UNITS in LACTATED RINGER'S 1,000 ML IV SCH ×2 (07:21→15:28)
[2021-08-15] MEDS: FERROUS SULFATE 325 MG TAB PO SCH (07:23)
[2021-08-15] MEDS: SIMETHICONE 80 MG CHEW PO SCH ×4 (07:23→20:28)
[2021-08-15] MEDS: PRENATAL VITAMIN 1 TAB PO SCH (07:23)
[2021-08-15] MEDS: DOCUSATE SODIUM 100 MG CAP PO SCH ×2 (07:23→20:28)
[2021-08-15] MEDS ORDERED: PRENATAL PO SCH (09:00)
[2021-08-15] MEDS: LACTATED RINGER'S 1,000 ML IV SCH (17:49)
[2021-08-15] MEDS ORDERED: PROMETHAZINE HCL 25 MG in SODIUM CHLORIDE 0.9% 50 ML IV PRN (22:41)
[2021-08-15] MEDS ORDERED: MEPERIDINE HCL 50 MG/ML CARP IV PRN (22:41)
[2021-08-15] MEDS ORDERED: diphenhydrAMINE Capsule 25 MG CAP PO PRN (22:41)
[2021-08-15] MEDS: IBUPROFEN 600 MG TAB PO PRN (23:01)
[2021-08-15] MEDS: oxyCODONE/ACETAMINOPHEN 5mg/325mg TAB PO PRN (23:02)
[2021-08-16] MEDS: IBUPROFEN 600 MG TAB PO PRN ×2 (05:22→13:03)
[2021-08-16] MEDS: oxyCODONE/ACETAMINOPHEN 5mg/325mg TAB PO PRN ×2 (05:23→13:05)
[2021-08-16 06:54] LABS: Eosinophils # (auto) 0.04 K/uL (0-0.5); Eosinophils % (auto) 0.3 %; Hematocrit (blood only) 33.1 % (37-47); Hemoglobin 10.4 g/dL (12.0-16.0); Immature Granulocytes # (auto) 0.05 K/uL (0.00-0.02); Immature Granulocytes % (auto) 0.4 %; Lymphocytes # (auto) 1.49 K/uL (1.2-3.4); Lymphocytes % (auto) 10.5 %; Mean Corpuscular Hemoglobin 28.7 pg (25-34); Mean Corpuscular Hgb Conc 31.4 g/dL (32-36); Mean Corpuscular Volume 91.4 fL (80-100); Mean Platelet Volume 9.9 fL (7.4-10.4); Monocytes # (auto) 1.23 K/uL (0.11-0.59); Monocytes % (auto) 8.6 %; Neutrophils # (auto) 11.43 K/uL (1.4-6.5); Neutrophils % (auto) 80.2 %; Platelet Count 211 K/uL (130-400); RDW Coefficient of Variation 14.3 % (11.5-14.5); RDW Standard Deviation 47.5 fL (36.4-46.3); Red Blood Count 3.62 M/uL (4.2-5.4); White Blood Count 14.24 K/uL (4.8-10.8)
--- NOTE | 2021-08-16 08:17 | Obstetrical Progress Note ---
Date of Service August 16, 2021 Assessment & Plan (1) Status post : Plan: 31yo POD 1 s/p LTCS at 39 weeks -Continue routine care, bandages removed today, incision site healing well with no signs of infection -Vitals reviewed- HDS, afebrile -Encourage ambulation, regular diet -Pain control with ibuprofen, acetaminophen PRN -Encourage -Hgb 10.4 -discharge likely today since patient would like to go home and is doing well, f/u in 6 weeks with OB Admission and Anticipated Discharge Date Admission Date: August 15, 2021 Supervising Physician Co-Signing Physician Notes Resident Physician Supervision Note: I was present with during the history and exam. I discussed the case with the resident and agree with the findings and plan as documented in the note. Any exceptions or clarifications are listed here: [None] Documented By: Radha Doan MD, FACOG Subjective POD 1 s/p LCTS w/ tubal ligation. Patient seen and examined at bedside. Reports no acute overnight events. Ambulating and voiding. Has passed gas not yet stool. Regular diet w/o N/V. Breast Feeding. Pain 4/10 near incision site. Review of Systems Review of Systems: Denies fevers/chills. Denies dyspnea, cough. Denies chest pain. Denies breast pain or discharge. Denies dysuria. Denies headache. Denies back pain. Physical Exam Physical Exam: General: Alert, oriented, no acute distress Cardiac: Regular rate and rhythm, normal S1, S2. No murmurs appreciated. Respiratory: Clear to auscultation b/l with good air flow entry, symmetric chest rise and fall. No wheezes or crackles. No increased work of breathing or accessory muscle use Abdomen: Soft, nontender, nondistended. Fundus firm and palpable at umbilicus. Surgical incision clean, dry and intact without erythema, warmth or drainage. Bowel sounds appreciated. No guarding or rebound. Skin: No rashes or lesions Extremities: Warm, dry, well-perfused with capillary refill <2s b/l. No lower extremity edema, erythema or swelling. Negative Mario's sign b/l. Results & Data ([facility]) Vital Signs (Past 12 Hours) Vital Signs Temp Pulse Resp BP Pulse Ox 09/25/21 02:50 36.4 C L 96 H 18 122/78 93 08/15/21 23:05 36.9 C 106 H 18 126/77 93 08/15/21 22:00 18 93 08/15/21 21:00 18 93 Resident Activity Tracking Resident Involvement: Resident Care Provided Care Provided: OB Delivery
[2021-08-16] MEDS: SIMETHICONE 80 MG CHEW PO SCH ×2 (08:28→13:03)
[2021-08-16] MEDS: PRENATAL VITAMIN 1 TAB PO SCH (08:29)
[2021-08-16] MEDS: FERROUS SULFATE 325 MG TAB PO SCH (08:29)
[2021-08-16] MEDS: DOCUSATE SODIUM 100 MG CAP PO SCH (08:29)
[2021-08-16 10:37] VITALS: BP 129/81; PULSE 82; TEMP 97.9; O2SAT 95
[2021-08-16] MEDS ORDERED: bisacodyL 5 MG TABEC PO SCH (20:00)
[2021-08-17] MEDS ORDERED: bisacodyL 10 MG SUPP PR PRN (05:24)
--- NOTE | 2021-08-19 01:46 | Discharge Summary (DS) ---
DATE OF DISCHARGE: 08/16/2021. PRINCIPAL DIAGNOSES: Intrauterine at 39 weeks, prior section x3, unwanted fertili ty, and multiparity. PRINCIPAL PROCEDURE: A repeat section and bilateral tubal ligation. HISTORY: The patient is a 31-year-old white female, 4, para 3-0-0-3, EDC of 08/22/2021 who p resented with ruptured membranes in labor prior to her scheduled section. She had started to contrac t spontaneously after her membranes ruptured. The section was done several hours prior to t he planned time. This was done without any complications. There were significant adhesions of the a bdominal wall to the fundus of the uterus; however, these were taken down without any difficulty and the tubal and section were done without any other complications. She had an uncomplicated p ostoperative course. She was eating regular diet on the morning of her first postop day. She remain ed afebrile throughout her hospital stay. She is ambulating and voiding without difficulty. Hemoglo bin on admission was 12.2, hematocrit of 37.7. First postop day hemoglobin 10.4, hematocrit of 33.1. She was sent home in good condition with prescriptions for Percocet 1 tablet p.o. q. 4 hours p.r.n. pain, Motrin 600 mg p.o. q. 4 hours p.r.n. pain. She is to call for a temperature of 101 degrees or higher, heavy vaginal bleeding, burning with urination, increased redness, drainage or pain in her i ncision, calf tenderness, or any other concerns. She will be seen in the office in 6 weeks for a fol lowup visit. Job ID: [id number]
== END 2021-08-16 15:20 | disposition home or self-care (01) | DRG 785 ==
LOC: 4S1 02:37 → 4S2 08:49 → EDSTATUS 08:55
PROC: M.PPTLD (2021-08-15 08:50)
DX: Z87.891 Personal history of nicotine dependence; Z30.2 Encounter for sterilization; Z86.16 Personal history of COVID-19; O34.211 Maternal care for low transverse scar from previous cesarean delivery; Z37.0 Single live birth; Z3A.39 39 weeks gestation of pregnancy